=== PATIENT | male | born 1985 | race American Indian/Alaskan Native ===

== ENCOUNTER 2020-12-02 14:53 | Emergency (ER) | payer OTHER ==
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
[2020-12-02] MEDS ORDERED: ceFAZolin/NS 1 GM/50 ML 1 GM/50 ML BAG IV ONE (18:00)
[2020-12-02] MEDS ORDERED: ceFAZolin 1 GM VIAL IM ONE (18:35)
[2020-12-02 19:05] VITALS: BP 126/76
== END 2020-12-02 18:47 | disposition home or self-care (01) ==
LOC: ED 14:53
DX: S51.831A Puncture wound without foreign body of right forearm, initial encounter (principal); Z79.899 Other long term (current) drug therapy; W34.09XA Accidental discharge from other specified firearms, initial encounter; Y93.89 Activity, other specified; Y92.89 Other specified places as the place of occurrence of the external cause; Y99.8 Other external cause status
CPT/HCPCS: 73090; 96372; 99283; J0690